=== PATIENT | male | born 1965 | race Caucasian/White ===

== ENCOUNTER 2020-08-31 16:12 | Emergency (ER) | payer BC ==
[2020-08-31 16:26] VITALS: RESP 18; TEMP 98
[2020-08-31] MEDS ORDERED: SODIUM CHLORIDE 0.9% 1,000 ML IV STA (16:44)
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
[2020-08-31 17:01] LABS: Basophils # (A) 0.1 k/uL (0-0.2); Basophils % (A) 2 %; Eosinophils # (A) 0.3 k/uL (0-0.7); Eosinophils % (A) 4 %; HCT 45.2 % (39.0-53.0); HGB 15.4 gm/dL (13.0-17.5); Lymphocytes # (A) 2.5 k/uL (1.0-4.8); Lymphocytes % (A) 35 %; MCH 29.9 pg (25.0-35.0); MCV 88.1 fL (80.0-100.0); Mean Platelet Volume 7.8; Monocytes # (A) 0.4 k/uL (0-1.0); Monocytes % (A) 5 %; Neutrophils # (A) 3.8 k/uL (1.3-7.7); Neutrophils % (A) 53 %; Platelet Count 219 k/uL (150-450); RBC 5.13 m/uL (4.30-5.90); RDW 12.5 % (11.5-15.5); WBC 7.2 k/uL (3.8-10.6)
[2020-08-31 17:11] LABS: Partial Thromboplastin Time 24.3 sec (22.0-30.0); Prothrombin Time 10.6 sec (9.0-12.0)
[2020-08-31 17:12] LABS: ALT 23 U/L (4-49); AST 25 U/L (17-59); African American GFR (CKD) >90 (>60 ml/min/1.73 sqM); Albumin 4.4 g/dL (3.5-5.0); Alkaline Phosphatase 63 U/L (38-126); Anion Gap 7 mmol/L; Blood Urea Nitrogen 15 mg/dL (9-20); Calcium 9.7 mg/dL (8.4-10.2); Carbon Dioxide 24 mmol/L (22-30); Chloride 104 mmol/L (98-107); Glucose 103 mg/dL (74-99); Non-African American GFR(CKD) >90 (>60 ml/min/1.73 sqM); Potassium 4.4 mmol/L (3.5-5.1); Sodium 135 mmol/L (137-145); Total Bilirubin 0.3 mg/dL (0.2-1.3); Total Protein 7.2 g/dL (6.3-8.2)
--- NOTE | 2020-08-31 17:21 | XR ---
EXAMINATION TYPE: XR chest 2V DATE OF EXAM: 08/31/2020 COMPARISON: NONE HISTORY: Palpitations. TECHNIQUE: Frontal and lateral views of the chest are obtained. FINDINGS: Overlying EKG leads. There is no focal air space opacity, pleural effusion, or pneumothorax seen. The cardiac silhouette size is upper limits of normal. The osseous structures are intact. IMPRESSION: No acute cardiopulmonary process.
[2020-08-31 17:29] LABS: T4, Free (Free Thyroxine) 0.97 ng/dL (0.78-2.19)
[2020-08-31 18:49] VITALS: BP 140/95; PULSE 72
== END 2020-08-31 18:38 | disposition home or self-care (01) ==
LOC: EC 16:12
DX: R00.2 Palpitations (principal); F17.200 Nicotine dependence, unspecified, uncomplicated
CPT/HCPCS: 36415; 71046; 80053; 83735; 84439; 84443; 84481; 84484; 85025; 85610; 85730; 93005; 96360; 96361; 99285

== ENCOUNTER → 2023-11-30 | Outpatient (CLI) | payer BC ==
--- NOTE | 2023-12-03 20:53 | SLS ---
SLEEP STUDY This is a home sleep study. HISTORY OF PRESENT ILLNESS: A 58-year-old male patient referred to me for sleep apnea evaluation. 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 The patient has sleep fragmentation and he wakes himself up in the middle of the night for choking and gasping. He weighs 257 pounds and he has an [place] score of 8. 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 PERTINENT PHYSICAL FINDINGS: Weight is 257 pounds, and the patient's body mass index is 30.5. TECHNICAL DESCRIPTION: The [employer] system was used to complete the home sleep study. This is a type 3 home sleep study evaluation. Total recording duration was 6 hours and 40 minutes. This study started at 8:14 p.m., ended at 2:53 a.m. There was more than 6 hours of flow on oxygen saturation evaluation. RESULTS: Respiratory analysis showed a total of 5 obstructive apneas and a total of 174 obstructive hypopneas. The resulting apnea-hypopnea index was 35.4 consistent with severe disease and the patient's sleep apnea was worse in a supine body position with an AHI of 46.2 while supine. OXYGENATION ANALYSIS: The average pulse ox at night was 93% with a minimum pulse ox of 81% and the patient spent approximately 13 minutes of sleep time below pulse ox of 89%. CARDIAC SUMMARY: Average heart rate was 64, minimum heart rate was 47, maximum heart rate was 92. IMPRESSION: 1. Severe symptomatic obstructive sleep apnea with an AHI of 35.4, worse in the supine body position. 2. Mild nocturnal oxygen desaturation with a minimum pulse ox of 81%. 3. Chronic hypersomnia, [place] score of 8. 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 5. Obesity with a body mass index of 30.5. PLAN: The patient has severe symptomatic obstructive sleep apnea. We will encourage CPAP therapy. Based on that, we will make recommendations for this patient to come into the sleep center to undergo a CPAP titration. We will continue to follow his care and make further recommendations following his CPAP titration. JEYSON / ROSAURAN: [id number] /
== END ==
LOC: 3 N SLEEP 16:51
PROVIDERS: ATTEND Internal Medicine Critical Care Medicine
DX: G47.33 Obstructive sleep apnea (adult) (pediatric) (principal); G47.10 Hypersomnia, unspecified; G47.36 Sleep related hypoventilation in conditions classified elsewhere; E66.9 Obesity, unspecified; Z68.30 Body mass index [BMI] 30.0-30.9, adult